=== PATIENT | female | born 1970 | race Caucasian/White ===

== ENCOUNTER 2017-12-15 14:57 | Outpatient (CLI) | payer OTHER | END 2017-12-15 15:09 | disposition home or self-care (01) | LOC: SONOGRAMA 14:57 → MAMO-SONO 15:15 | DX: N64.89 Other specified disorders of breast (principal) ==

== ENCOUNTER 2018-01-07 12:48 | Outpatient (CLI) | payer OTHER | END 2018-01-11 08:53 | disposition home or self-care (01) | LOC: MAMO-SONO 12:48 | DX: N60.11 Diffuse cystic mastopathy of right breast (principal); N60.12 Diffuse cystic mastopathy of left breast; N63.42 Unspecified lump in left breast, subareolar ==

== ENCOUNTER → 2018-01-31 | Day surgery (SDC) | payer OTHER | END | disposition home or self-care (01) | LOC: ADM 01-27 14:15 → CIR.AMB 07:00 | DX: D24.2 Benign neoplasm of left breast (principal) ==

== ENCOUNTER 2024-02-10 05:22 | Day surgery (SDC) | payer OTHER ==
[2024-02-01 09:21] LABS: HEMATOCRIT 39.5 % (36.0-45.00); HEMOGLOBIN 13.4 g/dL (12.0-15.00); MEAN CELL VOLUME 84.2 fL (80.00-100.00); MEAN CORPUSCULAR HEMOGLOBIN 28.6 pg (27.00-32.0); MEAN CORPUSCULAR HGB CONC 33.9 g/dl (32.0-36.0); PLATELET COUNT 310 K/uL (150-450); RED CELL DISTRIBUTION WIDTH 14.2 % (11.5-14.5)
[2024-02-01 09:36] LABS: PH,URINE 7.5 (5.0-8.0); URINE APPEARANCE Clear; URINE BILIRRUBIN Negative (NEGATIVE); URINE BLOOD Negative; URINE COLOR Yellow; URINE GLUCOSE Negative (NEGATIVE); URINE KETONE Negative (NEGATIVE); URINE LEUKOCYTE Negative; URINE NITRATE Negative; URINE PROTEIN Negative (NEGATIVE); URINE UROBILINOGEN 0.2 E.U./dl
[2024-02-01 09:46] LABS: URINE BACTERIA 59.9 uL (0.0-1933); URINE EPITHELIAL CELLS 3.9 uL (0.0-38.8); URINE RBC 13.2 uL (0.0-20.8)
[2024-02-01 09:48] LABS: INR 0.98; PARTIAL THROMBOPLASTIN TIME 28.3 SECONDS (22.0-34.0); PROTHROMBIN TIME 10.7 SECONDS (9.0-11.5)
[2024-02-01 10:01] LABS: URINE WBC 1.4 uL (0.0-23.2)
[2024-02-01 10:10] LABS: BILIRUBIN TOTAL 0.41 mg/dL (0.3-1.2); CALCIUM 8.9 mg/dL (8.5-10.1); CREATININE SERUM 0.69 mg/dL (0.55-1.02); GLOBULINA 3.3 G/DL (2.4-3.5); POTASSIUM 4.1 mEq/L (3.5-5.1); TOTAL PROTEIN 7.3 gm/dL (6.4-8.2)
[2024-02-10] MEDS ORDERED: DEXAMETHASONE SODIUM PHOSPHATE 4 MG/ML VIAL IV ONE (08:15)
[2024-02-10] MEDS ORDERED: CEFAZOLIN SODIUM 1,000 MG VIAL IV ONE (08:15)
[2024-02-10] MEDS ORDERED: MORPHINE SULFATE 4 MG/ML VIAL IV ONE (10:50)
== END 2024-02-10 13:05 | disposition home or self-care (01) ==
LOC: CIR.AMB 05:22
PROVIDERS: ATTEND Otolaryngology
DX: C73 Malignant neoplasm of thyroid gland (principal); E04.1 Nontoxic single thyroid nodule; Z91.041 Radiographic dye allergy status

== ENCOUNTER 2024-02-10 21:01 | Inpatient (IN) | payer OTHER ==
[~2024-02-10] VITALS: Ht 165.1 cm; Wt 81.6 kg
--- NOTE | 2024-02-10 21:22 | NUR ---
PTE ALERTA Y ORIENTADA X3. REFIERE HERSON SIDO OPERADA DE LAS TIROIDES POR DRA. CHADWICK WILLS, PTE REFIERE HERSON EXPERIMENTADO 4 VOMITOS DESPUES DE LA OPERACION. REFIERE QUE DR. DENNISON LE INDICO QUE VINIERA
[2024-02-10] MEDS ORDERED: 0.9 % SODIUM CHLORIDE 1,000 ML IV SCH (21:45)
[2024-02-10] MEDS ORDERED: ACETAMINOPHEN 500 MG GEL..CAP PO ONE (21:45)
[2024-02-10] MEDS ORDERED: ONDANSETRON HCL 2 MG/ML VIAL IV ONE (21:45)
[2024-02-10] MEDS ORDERED: TRAMADOL HCL 50 MG TABLET PO ONE (21:45)
[2024-02-10] MEDS ORDERED: FAMOTIDINE/PF 20 MG in 0.9 % SODIUM CHLORIDE 8 ML IV PUSH SCH (21:53)
--- NOTE | 2024-02-10 21:59 | NUR ---
SE EDUCA A PTE SOBRE [place] MEDICO, SE MIKIE MUESTRAS DE LABORATORIO UTILIZANDO MEDIDAS ASEPTICAS. SE COLOCA H/L MERCEDES DE EDEMA. SE ADMINISTRAN MEDICAMENTOS LOS CUALES [place].
[2024-02-10] MEDS ORDERED: TRAMADOL HCL 50 MG TABLET PO PRN (22:00)
[2024-02-10] MEDS ORDERED: CYCLOBENZAPRINE HCL 5 MG TABLET PO ONE (22:00)
[2024-02-10] MEDS ORDERED: ACETAMINOPHEN 500 MG GEL..CAP PO PRN (22:00)
[2024-02-10] MEDS ORDERED: PROMETHAZINE HCL 25 MG/ML AMPUL IM PRN ×2 (22:00)
[2024-02-10 22:16] LABS: HEMATOCRIT 40.2 % (36.0-45.00); HEMOGLOBIN 13.7 g/dL (12.0-15.00); MEAN CELL VOLUME 83.5 fL (80.00-100.00); MEAN CORPUSCULAR HEMOGLOBIN 28.5 pg (27.00-32.0); MEAN CORPUSCULAR HGB CONC 34.2 g/dl (32.0-36.0); PLATELET COUNT 321 K/uL (150-450); RED BLOOD COUNT 4.81 M/uL (4.00-6.00); RED CELL DISTRIBUTION WIDTH 14.1 % (11.5-14.5)
[2024-02-10 22:29] LABS: INR 1.04; PARTIAL THROMBOPLASTIN TIME 27.2 SECONDS (22.0-34.0); PROTHROMBIN TIME 11.3 SECONDS (9.0-11.5)
[2024-02-10 22:34] LABS: ALBUMIN 3.6 gm/dL (3.4-5.0); BILIRUBIN TOTAL 0.27 mg/dL (0.3-1.2); CALCIUM 8.7 mg/dL (8.5-10.1); CREATININE SERUM 0.74 mg/dL (0.55-1.02); GFR 82.09; GLOBULINA 3.8 G/DL (2.4-3.5); POTASSIUM 4.15 mEq/L (3.5-5.1); TOTAL PROTEIN 7.4 gm/dL (6.4-8.2)
[2024-02-11 02:19] LABS: URINE APPEARANCE Clear; URINE BILIRRUBIN Negative (NEGATIVE); URINE BLOOD Negative; URINE COLOR Yellow; URINE GLUCOSE Negative (NEGATIVE); URINE KETONE Negative (NEGATIVE); URINE LEUKOCYTE Negative; URINE NITRATE Negative; URINE PROTEIN Negative (NEGATIVE); URINE UROBILINOGEN 0.2 E.U./dl
[2024-02-11 02:22] LABS: URINE BACTERIA 111.3 uL (0.0-1933); URINE EPITHELIAL CELLS 6.3 uL (0.0-38.8)
[2024-02-11 02:29] LABS: URINE CAST 0.14 uL (0.0-1.40)
[2024-02-11 02:30] VITALS: BP 112/72; O2SAT 97
[2024-02-11 08:00] VITALS: BP 137/63; O2SAT 100
== END 2024-02-11 14:35 | disposition home or self-care (01) | DRG 921 ==
LOC: ER 21:01 → SURH 21:54
PROVIDERS: General Practice; ADMIT Surgery; ATTEND Surgery
DX: E89.89 Other postprocedural endocrine and metabolic complications and disorders (principal); E86.0 Dehydration; R11.2 Nausea with vomiting, unspecified; Z20.822 Contact with and (suspected) exposure to COVID-19